=== PATIENT | female | born 1970 | race Caucasian/White ===

== ENCOUNTER 2021-02-14 07:16 | Day surgery (SDC) | payer OTHER ==
[~2021-02-14] VITALS: Ht 162.6 cm; Wt 74.0 kg
[~2021-02-14 07:16] MED LIST: BIOTIN1 MG PO; BIRTH CONTROL PO; CALCIUM 600 +1 EA11 PO; CALCIUM PO; CENTRUM SILVER1 EAC2 PO; FERSU300 PO; ORAL CONTRACEPTIVE
[2021-02-14] MEDS ORDERED: TRAM50 PO (07:57)
[2021-02-14] MEDS ORDERED: ZOFRAN4 MG PO (07:57)
[2021-02-14] MEDS ORDERED: PEPCID40 MG PO (07:58)
[2021-02-14] MEDS ORDERED: MELO7.5 (07:58)
[2021-02-14] MEDS ORDERED: Nortrel1 EAC2 PO (07:58)
--- NOTE | 2021-02-14 08:39 | NUR ---
02/14/21 0839 Ariadna Sweet History, Chart, Medications and Allergies reviewed before start of procedure. Patient confirms NPO status and agrees with scheduled surgery. PATIENT DETERMINED TO BE ASA APPROPRIATE FOR PROPOFOL SEDATION PRIOR TO START OF PROCEDURE BY . 3-LEAD EKG REVIEWED WITH PHYSICIAN PRIOR TO START OF PROCEDURE. MONITOR INTACT WITH CONTINUOUS PULSE OXIMETRY AND INTERMITTENT BP.
== END 2021-02-14 10:45 | disposition home or self-care (01) ==
LOC: ORSCMMR 07:16 → ORD 08:30 → ORSCMMR 10:45
PROVIDERS: Internal Medicine Gastroenterology
PROC: 3E0H8KZ Introduction of Other Diagnostic Substance into Lower GI, Via Natural or Artificial Opening Endoscopic (ICD-10-PCS; principal; 2021-02-14 08:30)
PROC: 0DBK8ZX Excision of Ascending Colon, Via Natural or Artificial Opening Endoscopic, Diagnostic (ICD-10-PCS; principal; 2021-02-14 08:30)
DX: Z12.11 Encounter for screening for malignant neoplasm of colon (principal); D12.2 Benign neoplasm of ascending colon; K64.8 Other hemorrhoids; K57.30 Diverticulosis of large intestine without perforation or abscess without bleeding; Z98.84 Bariatric surgery status; I10 Essential (primary) hypertension; K29.70 Gastritis, unspecified, without bleeding; Z87.891 Personal history of nicotine dependence; Z79.3 Long term (current) use of hormonal contraceptives; Z79.899 Other long term (current) drug therapy
CPT/HCPCS: 88305; J2704; J7120

== ENCOUNTER 2021-03-04 08:34 | Day surgery (SDC) | payer OTHER ==
[~2021-03-04] VITALS: Ht 162.6 cm; Wt 28.6 kg
[~2021-03-04 08:34] MED LIST changes: +MELO7.5; +Nortrel1 EAC2 PO; +PEPCID40 MG PO; +TRAM50 PO; +ZOFRAN4 MG PO
[2021-03-04] MEDS ORDERED: MOBIC15 MG PO (09:33)
[2021-03-04] MEDS ORDERED: TRAM50 PO (09:33)
[2021-03-04] MEDS ORDERED: FAMO40 PO (09:33)
== END 2021-03-04 14:20 | disposition home or self-care (01) ==
LOC: ORSCSDS 08:34
PROVIDERS: Orthopaedic Surgery
PROC: 0SBC4ZZ Excision of Right Knee Joint, Percutaneous Endoscopic Approach (ICD-10-PCS; principal; 2021-03-04 10:15)
DX: S83.231A Complex tear of medial meniscus, current injury, right knee, initial encounter (principal); M23.200 Derangement of unspecified lateral meniscus due to old tear or injury, right knee; K21.9 Gastro-esophageal reflux disease without esophagitis; Z79.899 Other long term (current) drug therapy
CPT/HCPCS: A9270-GY; J0690; J1100; J2250; J2310; J2370; J2405; J2704; J3010; J7120

== ENCOUNTER 2021-07-07 21:18 | Emergency (ER) | payer OTHER ==
[~2021-07-07] VITALS: Ht 162.6 cm; Wt 72.6 kg
[~2021-07-07 21:18] MED LIST changes: +FAMO40 PO; +MOBIC15 MG PO
== END 2021-07-07 23:22 | disposition home or self-care (01) ==
LOC: ER 21:18
DX: J00 Acute nasopharyngitis [common cold] (principal); I10 Essential (primary) hypertension; Z87.891 Personal history of nicotine dependence; Z20.822 Contact with and (suspected) exposure to COVID-19; Z88.6 Allergy status to analgesic agent; Z88.8 Allergy status to other drugs, medicaments and biological substances; Z79.899 Other long term (current) drug therapy
CPT/HCPCS: 99284

== ENCOUNTER 2023-07-04 08:10 | Day surgery (SDC) | payer OTHER ==
[2023-07-04] VITALS (25 sets, daily range): BP systolic 94–129; BP diastolic 60–83
[~2023-07-04] VITALS: Ht 160 cm; Wt 75.4 kg
[~2023-07-04 08:10] MED LIST changes: +MELATONIN5 M1 PO
--- NOTE | 2023-07-04 08:59 | NUR ---
07/04/23 0859 Stacia Arriaga HISTORY, CHART, MEDICATIONS AND ALLERGIES REVIEWED BEFORE START OF PROCEDURE. PATIENT CONFIRMS NPO STATUS AND AGREES WITH SCHEDULED PROCEDURE. 3-LEAD EKG REVIEWED WITH PHYSICIAN PRIOR TO START OF PROCEDURE. MONITOR INTACT WITH CONTINUOUS PULSE OXIMETRY,CAPNOGRAPHY, 3-LEAD EKG, INTERMITTENT BP. SUPPLEMENTAL O2 TO BE TITRATED THROUGHOUT PROCEDURE TO MAINTAIN O2 SATURATION ABOVE 90%. PATIENT DETERMINED TO BE ASA APPROPRIATE FOR PROPOFOL SEDATION PRIOR TO START OF PROCEDURE BY DR. RANDHAWA.
--- NOTE | 2023-07-04 10:08 | NUR ---
REPORT RECIEVED. PT SITTING UP IN BED TOLERING PO FLUIDS. DR RANDHAWA AT BED SIDE. VSS ON ROOM AIR
--- NOTE | 2023-07-04 10:29 | NUR ---
Patient up to Ambulate independently. Gait steady. Discharge instructions reviewed with patient. Patient verbalizes understanding. Copy given to patient to take home. Discharged via wheelchair to private car for ride home.
== END 2023-07-04 10:31 | disposition home or self-care (01) ==
LOC: ORSCMMR 08:10 → ORD 09:00 → ORSCMMR 10:31
PROVIDERS: Internal Medicine Gastroenterology
PROC: 0DBK8ZX Excision of Ascending Colon, Via Natural or Artificial Opening Endoscopic, Diagnostic (ICD-10-PCS; principal; 2023-07-04 09:00)
DX: K63.5 Polyp of colon (principal); D12.2 Benign neoplasm of ascending colon; I10 Essential (primary) hypertension; Z98.84 Bariatric surgery status; K21.9 Gastro-esophageal reflux disease without esophagitis
CPT/HCPCS: 88305; J2704; J7120

== ENCOUNTER 2023-11-06 06:45 | Day surgery (SDC) | payer OTHER ==
[2023-11-06] VITALS (23 sets, daily range): BP systolic 84–110; BP diastolic 49–71
[~2023-11-06] VITALS: Ht 162.6 cm; Wt 79.7 kg
--- NOTE | 2023-11-06 07:31 | NUR ---
Ambulatory in Day Surgery. History, Chart, Medications and Allergies reviewed before start of procedure. Lungs clear T/O to Auscultation. Patient confirms NPO status and agrees with scheduled surgery. Pre-Op teaching done. Pt verbalizes understanding. Patient States Post-Procedure ride home has been arranged.
--- NOTE | 2023-11-06 08:00 | NUR ---
11/06/23 0800 Ariadna Sweet HISTORY, CHART, MEDICATIONS AND ALLERGIES REVIEWED BEFORE START OF PROCEDURE. PATIENT CONFIRMS NPO STATUS AND AGREES WITH SCHEDULED PROCEDURE. 3-LEAD EKG REVIEWED WITH PHYSICIAN PRIOR TO START OF PROCEDURE. MONITOR INTACT WITH CONTINUOUS PULSE OXIMETRY,CAPNOGRAPHY, 3-LEAD EKG, INTERMITTENT BP. SUPPLEMENTAL O2 TO BE TITRATED THROUGHOUT PROCEDURE TO MAINTAIN O2 SATURATION ABOVE 90%. PATIENT DETERMINED TO BE ASA APPROPRIATE FOR PROPOFOL SEDATION PRIOR TO START OF PROCEDURE BY DR. RANDHAWA. MALLAMPATI CLASS 2 AIRWAY: COMPLETE VISUALIZATION OF THE UVULA.
== END 2023-11-06 09:20 | disposition home or self-care (01) ==
LOC: ORSCMMR 06:45 → ORD 08:00 → ORSCMMR 08:00
PROVIDERS: Internal Medicine Gastroenterology
PROC: 0DBK8ZX Excision of Ascending Colon, Via Natural or Artificial Opening Endoscopic, Diagnostic (ICD-10-PCS; principal; 2023-11-06 08:00)
DX: D12.2 Benign neoplasm of ascending colon (principal); K21.9 Gastro-esophageal reflux disease without esophagitis; Z98.84 Bariatric surgery status
CPT/HCPCS: 88305; J2250; J2704; J7120

== ENCOUNTER 2023-11-09 07:24 | Day surgery (SDC) | payer OTHER ==
[2023-11-09] VITALS (15 sets, daily range): BP systolic 83–140; BP diastolic 58–80
[~2023-11-09] VITALS: Ht 162.6 cm; Wt 79.6 kg
--- NOTE | 2023-11-09 07:36 | NUR ---
Patient confirms NPO status and agrees with scheduled COLONOSCOPY. STATES RESULTS IN TOILET ARE GETTING LESS CLOUDY. PT HERE FOR BLEEDING POST COLONOSCOPY WITH POLYPECTOMY ON 11/06/23.
--- NOTE | 2023-11-09 08:24 | NUR ---
11/09/23 0824 Be Eugene HISTORY, CHART, MEDICATIONS AND ALLERGIES REVIEWED BEFORE START OF PROCEDURE. PATIENT CONFIRMS NPO STATUS AND AGREES WITH SCHEDULED PROCEDURE. 3-LEAD EKG REVIEWED WITH PHYSICIAN PRIOR TO START OF PROCEDURE. MONITOR INTACT WITH CONTINUOUS PULSE OXIMETRY,CAPNOGRAPHY, 3-LEAD EKG, INTERMITTENT BP. SUPPLEMENTAL O2 TO BE TITRATED THROUGHOUT PROCEDURE TO MAINTAIN O2 SATURATION ABOVE 90%. PATIENT DETERMINED TO BE ASA APPROPRIATE FOR PROPOFOL SEDATION PRIOR TO START OF PROCEDURE BY DR. RANDHAWA.
== END 2023-11-09 09:20 | disposition home or self-care (01) ==
LOC: ORD 07:24 → ORSCMMR 07:24 → ORSCSDS 08:15 → ORD 08:15
PROVIDERS: Internal Medicine Gastroenterology
PROC: 0W3P8ZZ Control Bleeding in Gastrointestinal Tract, Via Natural or Artificial Opening Endoscopic (ICD-10-PCS; principal; 2023-11-09 08:15)
DX: K62.5 Hemorrhage of anus and rectum (principal); Z98.84 Bariatric surgery status; I10 Essential (primary) hypertension; K21.9 Gastro-esophageal reflux disease without esophagitis
CPT/HCPCS: J2250; J2704; J7120

== ENCOUNTER → 2024-01-16 | Outpatient (CLI) | payer OTHER | LOC: LAB EV 13:04 | DX: R10.9 Unspecified abdominal pain (principal) | CPT/HCPCS: 87086 ==

== ENCOUNTER 2025-10-14 07:03 | Day surgery (SDC) | payer OTHER ==
[2025-10-14] VITALS (18 sets, daily range): BP systolic 107–141; BP diastolic 60–93
[~2025-10-14] VITALS: Ht 157.5 cm; Wt 82.3 kg
[~2025-10-14 07:03] MED LIST changes: +ACET325 PO; +B-12 COMPL1000 MCG/2 IM; +MULVITA PO; +OXAYDO5 M1 PO; +PANT40 PO; +TRAZ50 PO
[2025-10-14] MEDS ORDERED: OZEMPIC0.25 MG/02 SQ (07:17)
[2025-10-14] MEDS ORDERED: HYDCOR10 PO (07:18)
--- NOTE | 2025-10-14 07:42 | NUR ---
10/14/25 0742 Ariadna Sweet PATIENT REPORTS STOPPING HYDROCORTISONE ON 10/06/25 BECAUSE SHE THOUGHT SHE WAS SUPPOSED TO STOP IT. REPORTED THIS TO DR RANDHAWA. DR RANDHAWA ORDERED HYDROCORTISONE 50MG IV PRE-PROCEDURE.
--- NOTE | 2025-10-14 07:55 | NUR ---
Patient States Post-Procedure ride home has been arranged. Patient confirms NPO status and agrees with scheduled surgery. Patient states colon prep results clear. Pre-Op and discharge teaching done. Pt verbalizes understanding. Patient was given a dose of hyudrocortisone per order of Dr Roy as patient has renal insufficiency.
[2025-10-14] MEDS ORDERED: ePHEDrine Sulfate 50 MG/ML 1ML Injection ONE (08:02)
--- NOTE | 2025-10-14 09:15 | NUR ---
Discharge instructions reviewed with patient. Patient verbalizes understanding. Copy given to patient to take home. Patient States Post-Procedure ride home has been arranged. Discharged via wheelchair to private car for ride home.
== END 2025-10-14 09:15 | disposition home or self-care (01) ==
LOC: ORSCMMR 07:03 → ORD 08:15 → ORSCMMR 08:15
PROVIDERS: Internal Medicine Gastroenterology
PROC: 0DJD8ZZ Inspection of Lower Intestinal Tract, Via Natural or Artificial Opening Endoscopic (ICD-10-PCS; principal; 2025-10-14 08:15)
DX: Z09 Encounter for follow-up examination after completed treatment for conditions other than malignant neoplasm (principal); K57.30 Diverticulosis of large intestine without perforation or abscess without bleeding; Z86.0101 Personal history of adenomatous and serrated colon polyps; E27.40 Unspecified adrenocortical insufficiency; K21.9 Gastro-esophageal reflux disease without esophagitis; Z79.85 Long-term (current) use of injectable non-insulin antidiabetic drugs; Z79.899 Other long term (current) drug therapy
CPT/HCPCS: J1720; J2704; J7120